=== PATIENT | female | born 1995 | race Caucasian/White ===

== ENCOUNTER 2020-02-09 11:12 | Outpatient (CLI) | payer BC ==
--- NOTE | 2020-02-09 11:33 | RAD ---
THREE VIEWS CERVICAL SPINE: HISTORY: Branch fell and hit patient wall trimming tree, C7 fracture. COMPARISON: None. CORRELATION: Cervical spine CT 01/18/2020. FINDINGS: Posterior element fractures at C7 with extension of fracture into the C7 spinous process is noted on the current radiograph. The fractures involving the facets and base of the spinous processes are somewhat limited in evaluation. There is stable distraction of the body of the C7 spinous process. No new fractures are appreciated. Based on images provided, no evidence of a perched or jumped facet. However if there is concern for malalignment along the posterior elements CT would be beneficial. Predental space is normal. No prevertebral soft tissue swelling. IMPRESSION: Limited and incomplete evaluation of posterior element fracture at C7. Additional imaging if warrante d. Transcribed Date/Time: 02/09/2020 11:51 AM
== END 2020-02-09 11:13 | disposition home or self-care (01) ==
LOC: BICRAD 11:12
PROVIDERS: ATTEND Neurological Surgery
DX: S12.600A Unspecified displaced fracture of seventh cervical vertebra, initial encounter for closed fracture (principal)
CPT/HCPCS: 72040